=== PATIENT | female | born 1980 | race Caucasian/White ===

== ENCOUNTER 2016-12-19 02:59 | Inpatient (IN) | payer BC ==
[2016-12-19] MEDS ORDERED: Sodium Chloride 0.9% 10 ML Syringe FLUSH PRN (07:26)
[2016-12-19] MEDS ORDERED: Oxytocin/Lactated Ringers 10 UNIT/1,000 ML BAG IV SCH ×2 (07:45→22:00)
[2016-12-19] MEDS: Lactated Ringers 1,000 ML IV SCH ×4 (08:00→18:40)
--- NOTE | 2016-12-19 08:35 | PCM.LDHP ---
<Mercedes Ryan - Last Filed: 12/19/16 09:18> L&D History of Present Illness - General Date of Service: 12/19/16 Admit Problem/Dx: Patient Status Order with Admit Dx/Problem Intrauterine at 39 and 0/7th weeks gestation. - History of Present Illness Introduction:: History of Present Illness: The patient is a 36-year-old 3, para 2-0-0-2 white female with an ILEANA of 12/26/2016, who was admitted for elective induction of labor. She is presently at 2 cm dilation. Course: The patient's last menstrual period was on 03/23/2016, was approximate, using no control at the time of conception. Her LMP was supported by ultrasounds done on 06/14/2016, 07/17/2016, 08/11/2016, 11/23/2016, and 2016. Her course has been relatively unremarkable. Patient has hypothyroidism and an umbilical cord cyst was seen on ultrasound done on 2016. She did report decreased movement on 11/23/2016 and a BPP at this time was 6/8. She is open to epidural. She had an [place] Depression Screen score of 3 on 08/10/2016. She received her tdap vaccination on 06/26/2014. She plans on . Quad screen was negative. Group B strep screen was negative. Her course weight gain of approximately 186 up to 220 pounds. Her vital signs were stable throughout and fundal height growth was appropriate. Laboratory Testing: Showed blood type to be A positive with negative antibody screen. Her hemoglobin was 13.3 at first visit. Platelets were 268,000. She is rubella immune. RPR is nonreactive. Her urine culture was negative. Hepatitis B and HIV assays were negative. Chlamydia and gonorrhea were negative. Genetic screening on 06/01/2016 was within normal limits. Her second trimester testing showed a hemoglobin of 12.9 and platelets were 212,000. Her 1 -hour glulcose was 129 - normal. Group B strep screen was negative. Free T4 was 1.05 on 06/14/2016. 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 sister: alive; healthy sister: alive; healthy sister: alive; hypothyroid 3 brothers: alive; healthy Maternal Grandmother: ; thyroid cancer Maternal Grandfather: ; unknown Paternal Grandmother: ; [place] Paternal Grandfather: ; old age No clotting, bleeding or anesthesia problems noted in family. - Tobacco Use Smoking Status *Q: Never Smoker Second Hand Smoke Exposure: No - Alcohol Use Days Per Week of Alcohol Use: 0 - Recreational Drug Use Recreational Drug Use: No - Living Situation & Occupation Social History Comment: The patient is , is Thony Calvillo. The live in [place]. The patient works as a special eduction para aide. She does not use any significant amounts of alcohol, drugs, or tobaccos. H&P Review of Systems - Review of Systems: Review Of Systems: See Below Free Text/Narrative: Respiratory: Denies asthma, shortness of breath, recent upper respiratory illness. Cardiovascular: Denies chest pain, history of murmurs, and palpitations. No history of blood clots Breasts: Changes associated with only GI: Denies nausea, vomiting, diarrhea, constipation and blood in stool. : Changes associated with only. Denies blood in urine and burning with urination. Musculoskeletal: Minimal edema on occasion General: Reports: Diaphoresis L&D Exam - Exam Exam: See Below - Vital Signs Vital Signs: General: The patient is a well-developed, well-nourished pleasant female of stated age, in no acute distress Vital signs: HEr blood pressure is 118/78 on last evalulation in clinic on 12/12. Weight was 220 with pregravid weight of 186. BMI prior to was 29.1. heart rate was 142. Skin: Warm and dry without lesions Lungs: Clear to auscultation bilaterally Cardiovascular: Regular rate and rhythm without murmur Breasts: Deferred, havign been done at first visit and found to be normal. Abdomen: Protuberant with with a fundal height of 38 cm. Baby in vertex presentation and confirmed with ultrasound. Cervical exam on 12/12/2016 in clinic was 2 cm, 70% effaced, soft, 3- station, and mid position. Extremities: No significant edema Weight: 99.881 kg - Patient Data Result Diagrams: 12/19/16 07:50 Problem List Initiated/Reviewed/Updated: Yes Orders Last 24hrs: Active Orders 24 hr Category Date Time Status Patient Status [ADT] Routine ADT 12/19/16 07:28 Active Activity as Tolerated [RC] PFP Care 12/19/16 07:28 Active Communication Order [RC] ASDIRECTED Care 12/19/16 07:28 Active Heart Tones [RC] ASDIRECTED Care 12/19/16 07:28 Active Notify Provider [RC] PFP Care 12/19/16 07:28 Active Notify Provider [RC] PRN Care 12/19/16 07:28 Active Peripheral IV Care [RC] . DIRECTED Care 12/19/16 07:28 Active Vital Signs [RC] PER UNIT ROUTINE Care 12/19/16 07:28 Active Clear Liquid Diet [DIET] Diet 12/19/16 Breakfast Active CBC W/O DIFF,HEMOGRAM [HEME] Stat Lab 12/19/16 07:26 Ordered Lactated Ringers [Ringers, Lactated] 1,000 ml Med 12/19/16 07:30 Active IV ASDIRECTED Oxytocin/Lactated Ringers [Pitocin in LR 10 Units/1,000 Med 12/19/16 07:45 Active ML] 10 unit in 1,000 ml IV TITRATE Sodium Chloride 0.9% [Saline Flush] Med 12/19/16 07:26 Active 10 ml FLUSH ASDIRECTED PRN Electronic Heart Tones Ext w TOCO [WOMSER] Oth 12/19/16 07:28 Ordered Routine Electronic Heart Tones Internal [WOMSER] Per Unit Oth 12/19/16 07:28 Ordered Routine Peripheral IV Insertion Adult [OM.PC] Routine Oth 12/19/16 07:28 Ordered Resuscitation Status Routine Resus Stat 12/19/16 07:26 Ordered Medication Orders Lactated Ringer's (Ringers, Lactated) 1,000 mls @ 100 mls/hr IV ASDIRECTED ERIC Oxytocin/Lactated Ringer's (Pitocin In Lr 10 Units/1,000 Ml) 10 unit in 1,000 mls @ 12 mls/hr IV TITRATE ERIC; 2 MUNITS/MIN PRN Reason: Protocol Sodium Chloride (Saline Flush) 10 ml FLUSH ASDIRECTED PRN PRN Reason: Keep Vein Open Assessment/Plan Comment:: Assessment: 1. Term intrauterine at 39 and 0/7th weeks gestational age, elective induction of labor 2. Group B strep negative 3. desires epidural for pain control 4. Patient plans to nurse Plan: 1. Anticipate normal spontaneous vaginal delivery 2. Epidural prn per patient's desire 3. CBC for epidural 4. Support nursing decision <Jose Guillen F - Last Filed: 12/20/16 06:52> L&D History of Present Illness - General Admit Problem/Dx: Patient Status Order with Admit Dx/Problem 12/19/16 07:28 Patient Status [ADT] Routine Admission Diagnosis/Problem Admission Diagnosis/Problem - planned H&P Review of Systems - Review of Systems: Review Of Systems: See Below L&D Exam - Exam Exam: See Below - Vital Signs Vital Signs: Last Vital Signs Temp 36.3 C 12/19/16 07:28 Pulse 88 12/19/16 07:28 Resp 16 12/19/16 14:21 BP 136/60 12/19/16 07:28 Pulse Ox 99 12/19/16 14:21 - Patient Data Lab Results Last 24 hrs: Laboratory Results - last 24 hr 12/19/16 Range/Units 07:50 WBC 10.97 H (3.98-10.04) K/mm3 RBC 3.99 (3.98-5.22) M/mm3 Hgb 12.8 (11.2-15.7) gm/L Hct 37.4 (34.1-44.9) % MCV 93.7 (79.4-94.8) fl MCH 32.1 (25.6-32.2) pg MCHC 34.2 (32.2-35.5) g/dl RDW Std Deviation 45.1 (36.4-46.3) fL Plt Count 193 (182-369) K/mm3 MPV 9.9 (9.4-12.3) fl Result Diagrams: 12/19/16 07:50 Orders Last 24hrs: Active Orders 24 hr Category Date Time Status Patient Status [ADT] Routine ADT 12/19/16 07:28 Active Activity as Tolerated [RC] PFP Care 12/19/16 07:28 Active Communication Order [RC] ASDIRECTED Care 12/19/16 07:28 Active Heart Tones [RC] ASDIRECTED Care 12/19/16 07:28 Active Notify Provider [RC] ASDIRECTED Care 12/19/16 14:25 Active Notify Provider [RC] PFP Care 12/19/16 07:28 Active Notify Provider [RC] PRN Care 12/19/16 07:28 Active Peripheral IV Care [RC] . DIRECTED Care 12/19/16 07:28 Active Vaccines to be Administered [RC] PER UNIT ROUTINE Care 12/19/16 09:55 Active Vital Signs [RC] PER UNIT ROUTINE Care 12/19/16 07:28 Active Clear Liquid Diet [DIET] Diet 12/19/16 Breakfast Active Bupivacaine/fentaNYL/NS [fentaNYL/Bupivacaine/NS 2 MCG- Med 12/19/16 14:30 Active 0.125% 100 ML] 100 ml EPIDUR ASDIRECTED Lactated Ringers [Ringers, Lactated] 1,000 ml Med 12/19/16 07:30 Active IV ASDIRECTED Levothyroxine Med 12/21/16 06:00 Active 0 mcg PO Q48H Ondansetron [Zofran] Med 12/19/16 14:25 Active 4 mg IVPUSH ONETIME PRN Ondansetron [Zofran] Med 12/20/16 06:10 Active 4 mg IVPUSH Q4H PRN Oxytocin [Pitocin] 20 unit Med 12/19/16 23:30 Active Lactated Ringers [Ringers, Lactated] 1,000 ml IV TITRATE Oxytocin/Lactated Ringers [Pitocin in LR 10 Units/1,000 Med 12/19/16 07:45 Active ML] 10 unit in 1,000 ml IV TITRATE Patient's Own Medication [Ptom] Med 12/20/16 06:00 Active 0 each PO ACBREAKFAST Patient's Own Medication [Ptom] Med 12/19/16 20:00 Active 0 each PO DAILY@2000 Sodium Chloride 0.9% [Saline Flush] Med 12/19/16 07:26 Active 10 ml FLUSH ASDIRECTED PRN diphenhydrAMINE [Benadryl] Med 12/19/16 14:25 Active 25 mg IVPUSH Q6H PRN ePHEDrine [ePHEDrine Sulfate] Med 12/19/16 14:25 Active 5 mg IVPUSH ASDIRECTED PRN fentaNYL [Sublimaze] Med 12/19/16 14:25 Active 100 mcg IVPUSH Q5M PRN Electronic Heart Tones Ext w TOCO [WOMSER] Oth 12/19/16 07:28 Ordered Routine Electronic Heart Tones Internal [WOMSER] Per Unit Oth 12/19/16 07:28 Ordered Routine May Take Own Home Medications [OM.PC] Routine Oth 12/19/16 09:56 Ordered Peripheral IV Insertion Adult [OM.PC] Routine Oth 12/19/16 07:28 Ordered Resuscitation Status Routine Resus Stat 12/19/16 07:26 Ordered Medication Orders Diphenhydramine HCl (Benadryl) 25 mg IVPUSH Q6H PRN PRN Reason: Pruritis Ephedrine Sulfate (Ephedrine Sulfate) 5 mg IVPUSH ASDIRECTED PRN PRN Reason: Hypotension Fentanyl (Sublimaze) 100 mcg IVPUSH Q5M PRN PRN Reason: Pain Last Admin: 12/19/16 18:11 Dose: 100 mcg Fentanyl/Bupivacaine HCl (Fentanyl/Bupivacaine/Ns 2 Mcg-0.125% 100 Ml) 100 ml EPIDUR ASDIRECTED [facility] Last Admin: 12/20/16 01:50 Dose: 100 ml Admin: 12/19/16 18:11 Dose: 100 ml Lactated Ringer's (Ringers, Lactated) 1,000 mls @ 100 mls/hr IV ASDIRECTED [facility] Last Admin: 12/20/16 01:00 Dose: 100 mls/hr Infusion: 12/20/16 00:00 Dose: 999 mls/hr Infusion: 12/19/16 23:28 Dose: 999 mls/hr Admin: 12/19/16 18:40 Dose: 100 mls/hr Infusion: 12/19/16 18:40 Dose: 100 mls/hr Admin: 12/19/16 17:11 Dose: 100 mls/hr Infusion: 12/19/16 17:11 Dose: 100 mls/hr Admin: 12/19/16 12:28 Dose: 100 mls/hr Infusion: 12/19/16 12:28 Dose: 100 mls/hr Admin: 12/19/16 08:00 Dose: 100 mls/hr Oxytocin/Lactated Ringer's (Pitocin In Lr 10 Units/1,000 Ml) 10 unit in 1,000 mls @ 12 mls/hr IV TITRATE ERIC; 2 MUNITS/MIN PRN Reason: Protocol Last Titration: 12/19/16 19:57 Dose: 20 munits/min, 120 mls/hr Titration: 12/19/16 17:10 Dose: 18 munits/min, 108 mls/hr Titration: 12/19/16 16:55 Dose: 16 munits/min, 96 mls/hr Titration: 12/19/16 16:29 Dose: 14 munits/min, 84 mls/hr Titration: 12/19/16 16:07 Dose: 12 munits/min, 72 mls/hr Titration: 12/19/16 15:40 Dose: 10 munits/min, 60 mls/hr Titration: 12/19/16 14:20 Dose: 8 munits/min, 48 mls/hr Titration: 12/19/16 13:34 Dose: 7 munits/min, 42 mls/hr Titration: 12/19/16 10:27 Dose: 6 munits/min, 36 mls/hr Titration: 12/19/16 08:54 Dose: 4 munits/min, 24 mls/hr Admin: 12/19/16 08:32 Dose: 2 munits/min, 12 mls/hr Oxytocin 20 unit/ Lactated (Ringer's) 1,002 mls @ 6.01 mls/hr IV TITRATE ERIC; 2 MUNITS/MIN PRN Reason: Protocol Last Titration: 12/20/16 06:09 Dose: 26 munits/min, 78.15 mls/hr Titration: 12/20/16 05:46 Dose: 28 munits/min, 84.16 mls/hr Titration: 12/20/16 05:01 Dose: 26 munits/min, 78.15 mls/hr Titration: 12/20/16 04:32 Dose: 24 munits/min, 72.14 mls/hr Titration: 12/20/16 03:59 Dose: 22 munits/min, 66.13 mls/hr Titration: 12/20/16 03:10 Dose: 20 munits/min, 60.12 mls/hr Titration: 12/20/16 02:40 Dose: 18 munits/min, 54.1 mls/hr Titration: 12/20/16 01:50 Dose: 16 munits/min, 48.09 mls/hr Titration: 12/20/16 01:34 Dose: 15 munits/min, 45.09 mls/hr Titration: 12/20/16 01:02 Dose: 14 munits/min, 42.08 mls/hr Titration: 12/20/16 00:00 Dose: 13 munits/min, 39.07 mls/hr Titration: 12/19/16 23:17 Dose: 12 munits/min, 36.07 mls/hr Admin: 12/19/16 22:22 Dose: 11 munits/min, 33.06 mls/hr Levothyroxine Sodium (Levothyroxine) 0 mcg PO Q48H [facility] Ondansetron HCl (Zofran) 4 mg IVPUSH ONETIME PRN PRN Reason: Nausea/Vomiting Last Admin: 12/20/16 01:09 Dose: 4 mg Ondansetron HCl (Zofran) 4 mg IVPUSH Q4H PRN PRN Reason: Nausea Last Admin: 12/20/16 06:15 Dose: 4 mg Multivitamin Tablet/Gelcap 0 each PO DAILY@1999 [facility] Last Admin: 12/19/16 20:45 Dose: 1 each Levothyroxine 200 (Mcg Tab) 0 each PO ACBREAKFAST [facility] Last Admin: 12/20/16 06:30 Dose: 1 each Sodium Chloride (Saline Flush) 10 ml FLUSH ASDIRECTED PRN PRN Reason: Keep Vein Open
[2016-12-19] MEDS ORDERED: Diphtheria,Pertussis(Acell),Tetanus Vaccine 0.5 ML SDV IM ONE (11:00)
--- NOTE | 2016-12-19 14:16 | PCM.PREANE ---
Preanesthetic Assessment - Procedure Proposed Procedure: Labor Epidural - Anesthesia/Transfusion/Family Hx Anesthesia History: No Prior Anesthesia Family History of Anesthesia Reaction: No - Review of Systems General: No Symptoms Pulmonary: No Symptoms Cardiovascular: No Symptoms Gastrointestinal: Other (Heart Burn with ) Neurological: No Symptoms Other: Reports: None - Physical Assessment O2 Sat by Pulse Oximetry: 99 Respiratory Rate: 16 Vital Signs: Last Vital Signs Temp 36.3 C 12/19/16 07:28 Pulse 88 12/19/16 07:28 Resp 16 12/19/16 07:28 BP 136/60 12/19/16 07:28 Pulse Ox 99 12/19/16 07:28 Height: 1.73 m Weight: 99.881 kg ASA Class: 2 Mental Status: Alert & Oriented x3 Dentition: Reports: Normal Dentition ROM/Head Extension: Full Lungs: Clear to Auscultation, Normal Respiratory Effort Cardiovascular: Regular Rate, Regular Rhythm - Lab Values: Laboratory Last Values WBC 10.97 K/mm3 (3.98-10.04) H 12/19/16 07:50 RBC 3.99 M/mm3 (3.98-5.22) 12/19/16 07:50 Hgb 12.8 gm/L (11.2-15.7) 12/19/16 07:50 Hct 37.4 % (34.1-44.9) 12/19/16 07:50 MCV 93.7 fl (79.4-94.8) 12/19/16 07:50 MCH 32.1 pg (25.6-32.2) 12/19/16 07:50 MCHC 34.2 g/dl (32.2-35.5) 12/19/16 07:50 RDW Std Deviation 45.1 fL (36.4-46.3) 12/19/16 07:50 Plt Count 193 K/mm3 (182-369) 12/19/16 07:50 MPV 9.9 fl (9.4-12.3) 12/19/16 07:50 - Allergies Allergies/Adverse Reactions: Allergies Allergy/AdvReac Type Severity Reaction Status Date / Time adhesive tape Allergy Rash Verified 12/19/16 07:22 - Acknowledgements Anesthesia Type Planned: Epidural Pt an Appropriate Candidate for the Planned Anesthesia: Yes Alternatives and Risks of Anesthesia Discussed w Pt/Guardian: Yes Pt/Guardian Understands and Agrees with Anesthesia Plan: Yes PreAnesthesia Questionnaire - Past Health History Medical/Surgical History: Denies Medical/Surgical History Gastrointestinal History: Reports: Other (See Below) Other Gastrointestinal History: had laparoscopy for gallbladder and had no gallbladder upon dx laparoscopy per patient Endocrine/Metabolic History: Reports: Hypothyroidism - Past Surgical History GI Surgical History: Reports: Other (See Below) Other GI Surgeries/Procedures: laparoscopy 1998 - SUBSTANCE USE Smoking Status *Q: Never Smoker Second Hand Smoke Exposure: No Days Per Week of Alcohol Use: 0 Recreational Drug Use History: No - HOME MEDS Home Medications: Home Meds Levothyroxine 250 mcg PO DAILY 02/06/14 [History] Pnv with Ca,No.71/Iron/Fa [ Vitamin Tablet] 1 tab PO DAILY 02/06/14 [ History] - CURRENT (IN HOUSE) MEDS Current Meds: Current Medications Lactated Ringer's (Ringers, Lactated) 1,000 mls @ 100 mls/hr IV ASDIRECTED ERIC Last Admin: 12/19/16 12:28 Dose: 100 mls/hr Oxytocin/Lactated Ringer's (Pitocin In Lr 10 Units/1,000 Ml) 10 unit in 1,000 mls @ 12 mls/hr IV TITRATE ERIC; 2 MUNITS/MIN PRN Reason: Protocol Last Titration: 12/19/16 13:34 Dose: 7 munits/min, 42 mls/hr Levothyroxine Sodium (Levothyroxine) 0 mcg PO Q48H ERIC Multivitamin Tablet/Gelcap 0 each PO DAILY@2000 ERIC Levothyroxine 200 (Mcg Tab) 0 each PO ACBREAKFAST ERIC Sodium Chloride (Saline Flush) 10 ml FLUSH ASDIRECTED PRN PRN Reason: Keep Vein Open Discontinued Medications Diphtheria/Tetanus/Acell Pertussis (Adacel) 0.5 ml IM .ONCE ONE Stop: 12/19/16 11:01
[2016-12-19] MEDS ORDERED: ePHEDrine 50 MG/ML SDV IVPUSH PRN (14:25)
[2016-12-19] MEDS ORDERED: Ondansetron 4 MG/2 ML SDV IVPUSH PRN (14:25)
[2016-12-19] MEDS ORDERED: diphenhydrAMINE 50 MG/ML SDV IVPUSH PRN (14:25)
[2016-12-19] MEDS ORDERED: fentaNYL 100 MCG/2 ML SDV IVPUSH PRN (14:25)
[2016-12-19] MEDS ORDERED: Bupivacaine 0.25% 10 ML SDV ONE (14:30)
[2016-12-19] MEDS: Bupivacaine/fentaNYL/NS 100 ML Bag EPIDUR SCH (18:11)
[2016-12-19] MEDS ORDERED: [UNRECOGNIZED DRUG - OTHER] PO SCH (20:00)
[2016-12-19] MEDS ORDERED: PRENATAL MULTIVITAMIN PO SCH (20:00)
[2016-12-19] MEDS ORDERED: Oxytocin 10 Units/1 ML SDV ONE (22:05)
[2016-12-20] MEDS: Lactated Ringers 1,000 ML IV SCH (01:00)
[2016-12-20] MEDS: Bupivacaine/fentaNYL/NS 100 ML Bag EPIDUR SCH (01:50)
[2016-12-20] MEDS ORDERED: Levothyroxine 200 MCG TAB PO SCH (06:00)
[2016-12-20] MEDS ORDERED: Ondansetron 4 MG/2 ML SDV IVPUSH PRN (06:10)
--- NOTE | 2016-12-20 07:42 | PCM.SN ---
- Free Text/Narrative Note: Mireya is a 36-year-old multigravida white female who was admitted yesterday morning for elective induction of labor. She was started on Pitocin and progressed very slowly until the a.m. of 12/20/2016. Memory is ruptured and internal pressure transducer was placed. At approximately 4 cm she began progressed more rapidly. She had an epidural placed for pain control. She became completely dilated at approximately and delivered a viable, harry, 3400 g (7 pound, 8 ounce) male with Apgars 9 and 9 in a left occiput anterior position. He was placed on mom's abdomen. Cord was clamped 2 and then was cut by the father. She had a second-degree laceration which was repaired with 3-0 Monocryl in routine fashion. Epidural was used for analgesia/ anesthesia. Placenta delivered spontaneously in a [place] presentation. The umbilical cord was noted to have 3 vessels. Placenta appeared complete and intact. It was discarded per patient desire. Patient plans to nurse. Estimated blood loss was 100 mL. Condition: Good
[2016-12-20] MEDS ORDERED: Docusate Sodium 100 MG Cap PO PRN (07:58)
[2016-12-20] MEDS ORDERED: Witch Hazel Medicated Pads 100/Jar TOP PRN (07:58)
[2016-12-20] MEDS ORDERED: Lanolin 100% Cream 7 GM Tube TOP PRN (07:58)
[2016-12-20] MEDS ORDERED: Benzocaine/Menthol 20%-0.5% Spray 56 GM Canister TOP PRN (07:58)
[2016-12-20] MEDS ORDERED: Prenatal Multivitamin with Calcium/Folic Acid/Iron Tab PO SCH ×2 (09:00→21:00)
[2016-12-20] MEDS ORDERED: Levothyroxine 125 MCG Tab PO SCH (09:00)
[2016-12-20] MEDS: Ibuprofen 600 MG Tab PO PRN ×3 (12:57→22:09)
[2016-12-20] MEDS: Acetaminophen 325 MG Tab PO PRN (18:43)
[2016-12-21] MEDS ORDERED: Levothyroxine 25 MCG Tab PO SCH (06:00)
[2016-12-21] MEDS ORDERED: Levothyroxine 125 MCG Tab PO SCH (06:00)
[2016-12-21] MEDS: Ibuprofen 600 MG Tab PO PRN (06:28)
--- NOTE | 2016-12-21 08:38 | PCM.DCSUM1 ---
Discharge Summary - Hospital Course Free Text/Narrative:: [facility]IVE Provider Simple Note Patient Name: MARCEL CLIFTON Date of : 82 Patient Status: Inpatient Attending Provider: Jose Guillen Date: 12/20/16 07:39 Initialization Date: 12/20/16 07:39 - Free Text/Narrative Note: Marcel is a 36-year-old multigravida white female who was admitted yesterday morning for elective induction of labor. She was started on Pitocin and progressed very slowly until the a.m. of 12/20/2016. Memory is ruptured and internal pressure transducer was placed. At approximately 4 cm she began progressed more rapidly. She had an epidural placed for pain control. She became completely dilated at approximately and delivered a viable, harry, 3400 g (7 pound, 8 ounce) male with Apgars 9 and 9 in a left occiput anterior position. He was placed on mom's abdomen. Cord was clamped 2 and then was cut by the father. She had a second-degree laceration which was repaired with 3-0 Monocryl in routine fashion. Epidural was used for analgesia/ anesthesia. Placenta delivered spontaneously in a [place] presentation. The umbilical cord was noted to have 3 vessels. Placenta appeared complete and intact. It was discarded per patient desire. Patient plans to nurse. Estimated blood loss was 100 mL. Condition: Good HPI Initial Comments: [facility] LIVE Provider Simple Note Patient Name: MARCEL CLIFTON Date of : 82 Patient Status: Inpatient Attending Provider: Jose Guillen Date: 12/20/16 07:39 Initialization Date: 12/20/16 07:39 - Free Text/Narrative Note: Marcel is a 36-year-old multigravida white female who was admitted yesterday morning for elective induction of labor. She was started on Pitocin and progressed very slowly until the a.m. of 12/20/2016. Memory is ruptured and internal pressure transducer was placed. At approximately 4 cm she began progressed more rapidly. She had an epidural placed for pain control. She became completely dilated at approximately and delivered a viable, harry, 3400 g (7 pound, 8 ounce) male with Apgars 9 and 9 in a left occiput anterior position. He was placed on mom's abdomen. Cord was clamped 2 and then was cut by the father. She had a second-degree laceration which was repaired with 3-0 Monocryl in routine fashion. Epidural was used for analgesia/ anesthesia. Placenta delivered spontaneously in a [place] presentation. The umbilical cord was noted to have 3 vessels. Placenta appeared complete and intact. It was discarded per patient desire. Patient plans to nurse. Estimated blood loss was 100 mL. Condition: Good Brief History: [facility] LIVE . Provider Simple Note. Patient Name : MARCEL CLIFTON [facility] Record Number: [id number]. Date of : Patient Status: Inpatient. Attending Provider: Jose Guillen FAccount Number : [id number]. Date: 12/20/16 07:39Initialization Date: 12/20/16 07:39. - Free Text/Narrative. Note: Marcel is a 36-year-old multigravida white female who was admitted yesterday morning for elective induction of labor. She was started on Pitocin and progressed very slowly until the a.m. of 12/20/2016. Memory is ruptured and internal pressure transducer was placed. At approximately 4 cm she began progressed more rapidly. She had an epidural placed for pain control. She became completely dilated at approximately and delivered a viable, harry, 3400 g (7 pound, 8 ounce) male infant with Apgars 9 and 9 in a left occiput anterior position. He was placed on mom's abdomen. Cord was clamped 2 and then was cut by the father. She had a second- degree laceration which was repaired with 3-0 Monocryl in routine fashion. Epidural was used for analgesia/anesthesia. Placenta delivered spontaneously in a [place] presentation. The umbilical cord was noted to have 3 vessels. Placenta appeared complete and intact. It was discarded per patient desire. Patient plans to nurse. Estimated blood loss was 100 mL. Condition: Good - Discharge Data Discharge Date: 12/21/16 Discharge Disposition: Home, Self-Care 01 Condition: Good - Discharge Diagnosis/Problem(s) (1) 39 weeks gestation of SNOMED Code(s): 56834355 ICD Code: Z3A.39 - 39 WEEKS GESTATION OF Status: Acute Current Visit: Yes (2) Second degree laceration of perineum, delivered, current hospitalization SNOMED Code(s): 416352663 ICD Code: O70.1 - SECOND DEGREE PERINEAL LACERATION DURING DELIVERY Status : Acute Current Visit: Yes - Patient Summary/Data Complications: none Consults: none Hospital Course: uneventful - Patient Instructions Diet: Regular Diet as Tolerated Driving: Do Not Drive (x48 hrs) Showering/Bathing: May Shower Notify Provider of: Fever, Increased Pain, Swelling and Redness, Drainage, Nausea and/or Vomiting - Discharge Plan Home Medications: Home Meds Levothyroxine 250 mcg PO DAILY 02/06/14 [History] Pnv with Ca,No.71/Iron/Fa [ Vitamin Tablet] 1 tab PO DAILY 02/06/14 [ History] Acetaminophen [Tylenol] 650 mg PO Q6H PRN #0 tablet 12/21/16 [Rx] Benzocaine/Menthol [Dermoplast Pain Relief [place]] 1 spray TOP ASDIRECTED PRN #0 canister 12/21/16 [Rx] Docusate Sodium [Colace] 100 mg PO BID PRN #0 cap 12/21/16 [Rx] Ibuprofen [IJD: Ibuprofen] 200 - 600 mg PO Q6H PRN #0 tablet 12/21/16 [Rx] Witch Carmela [Tucks] 1 pad TOP ASDIRECTED PRN #0 pad 12/21/16 [Rx] Referrals: Jose Guillen MD [Physician] - (6 weeks) - Discharge Summary/Plan Comment DC Time >30 min.: No - Patient Data Vitals - Most Recent: Last Vital Signs Temp 98.1 F 12/21/16 03:44 Pulse 72 12/21/16 03:44 Resp 14 12/21/16 03:44 BP 116/64 12/21/16 03:44 Pulse Ox 94 L 12/21/16 03:44 Weight - Most Recent: 220 lb 3.2 oz Lab Results - Last 24 hrs: Laboratory Results - last 24 hr 12/21/16 Range/Units 05:54 WBC 12.75 H (3.98-10.04) K/mm3 RBC 3.59 L (3.98-5.22) M/mm3 Hgb 11.6 (11.2-15.7) gm/L Hct 34.1 (34.1-44.9) % MCV 95.0 H (79.4-94.8) fl MCH 32.3 H (25.6-32.2) pg MCHC 34.0 (32.2-35.5) g/dl RDW Std Deviation 45.3 (36.4-46.3) fL Plt Count 178 L (182-369) K/mm3 MPV 10.2 (9.4-12.3) fl Med Orders - Current: Current Medications Acetaminophen (Tylenol) 650 mg PO Q4H PRN PRN Reason: mild pain or fever Last Admin: 12/20/16 18:43 Dose: 650 mg Benzocaine/Menthol (Dermoplast Pain Relief [place]) 0 gm TOP ASDIRECTED PRN PRN Reason: Perineal Comfort Measure Last Admin: 12/20/16 12:50 Dose: 1 applic Docusate Sodium (Colace) 100 mg PO BID PRN PRN Reason: Constipation Last Admin: 12/20/16 12:57 Dose: 100 mg Emollient Ointment (Lansinoh Hpa) 0 gm TOP ASDIRECTED PRN PRN Reason: Sore Nipples Ibuprofen (Motrin) 600 mg PO Q4H PRN PRN Reason: Mild pain or fever Last Admin: 12/21/16 06:28 Dose: 600 mg Levothyroxine Sodium (Levothyroxine) 250 mcg PO ACBREAKFAST [facility] Prenat Multivit/[place]/Iron/Folic Ac ( Plus Iron) 1 each PO BEDTIME [facility] Last Admin: 12/20/16 21:56 Dose: Not Given Eber Casey (Tucks) 1 pad TOP ASDIRECTED PRN PRN Reason: Hemorrhoid pain Last Admin: 12/20/16 12:49 Dose: 1 applic Discontinued Medications Diphenhydramine HCl (Benadryl) 25 mg IVPUSH Q6H PRN PRN Reason: Pruritis Diphtheria/Tetanus/Acell Pertussis (Adacel) 0.5 ml IM .ONCE ONE Stop: 12/19/16 11:01 Last Admin: 12/20/16 21:57 Dose: 0.5 ml Ephedrine Sulfate (Ephedrine Sulfate) 5 mg IVPUSH ASDIRECTED PRN PRN Reason: Hypotension Fentanyl (Sublimaze) 100 mcg IVPUSH Q5M PRN PRN Reason: Pain Last Admin: 12/19/16 18:11 Dose: 100 mcg Fentanyl/Bupivacaine HCl (Fentanyl/Bupivacaine/Ns 2 Mcg-0.125% 100 Ml) 100 ml EPIDUR ASDIRECTED [facility] Last Admin: 12/20/16 01:50 Dose: 100 ml Lactated Ringer's (Ringers, Lactated) 1,000 mls @ 100 mls/hr IV ASDIRECTED [facility] Last Admin: 12/20/16 01:00 Dose: 100 mls/hr Oxytocin/Lactated Ringer's (Pitocin In Lr 10 Units/1,000 Ml) 10 unit in 1,000 mls @ 12 mls/hr IV TITRATE ERIC; 2 MUNITS/MIN PRN Reason: Protocol Last Titration: 12/19/16 19:57 Dose: 20 munits/min, 120 mls/hr Oxytocin/Lactated Ringer's (Pitocin In Lr 10 Units/1,000 Ml) 10 unit in 1,000 mls @ 12 mls/hr IV TITRATE ERIC; 2 MUNITS/MIN PRN Reason: Protocol Oxytocin 20 unit/ Lactated (Ringer's) 1,002 mls @ 6.01 mls/hr IV TITRATE ERIC; 2 MUNITS/MIN PRN Reason: Protocol Last Titration: 12/20/16 07:35 Dose: 250 mls/hr Levothyroxine Sodium (Levothyroxine) 0 mcg PO Q48H [facility] Levothyroxine Sodium (Levothyroxine) 250 mcg PO DAILY [facility] Last Admin: 12/20/16 20:51 Dose: Not Given Ondansetron HCl (Zofran) 4 mg IVPUSH ONETIME PRN PRN Reason: Nausea/Vomiting Last Admin: 12/20/16 01:09 Dose: 4 mg Ondansetron HCl (Zofran) 4 mg IVPUSH Q4H PRN PRN Reason: Nausea Last Admin: 12/20/16 06:15 Dose: 4 mg Oxytocin (Pitocin) Confirm Administered Dose 10 unit .ROUTE .STK-MED ONE Stop: 12/19/16 22:06 Last Admin: 12/19/16 22:21 Dose: Not Given Multivitamin Tablet/Gelcap 0 each PO DAILY@1999 [facility] Last Admin: 12/19/16 20:45 Dose: 1 each Levothyroxine 200 (Mcg Tab) 0 each PO ACBREAKFAST [facility] Last Admin: 12/20/16 06:30 Dose: 1 each Prenat Multivit/[place]/Iron/Folic Ac ( Plus Iron) 1 each PO DAILY [facility] Last Admin: 12/20/16 20:51 Dose: Not Given Sodium Chloride (Saline Flush) 10 ml FLUSH ASDIRECTED PRN PRN Reason: Keep Vein Open *Q Meaningful Use (DIS) - VTE *Q VTE Criteria *Q: - Stroke *Q Stroke Criteria *Q: - AMI *Q AMI Criteria *Q:
[2016-12-21] MEDS: Acetaminophen 325 MG Tab PO PRN (09:02)
[2016-12-21 09:21] VITALS: BP 113/66
[2016-12-21] MEDS ORDERED: Acetaminophen/oxyCODONE 325-5 MG Tab PO ONE (09:51)
--- NOTE | 2016-12-21 10:23 | PCM48HPAN ---
Post Anesthesia Note - EVALUATION WITHIN 48HRS OF ANESTHETIC Vital Signs in Normal Range: Yes Patient Participated in Evaluation: Yes Respiratory Function Stable: Yes Airway Patent: Yes Cardiovascular Function Stable: Yes Hydration Status Stable: Yes Pain Control Satisfactory: Yes Nausea and Vomiting Control Satisfactory: Yes Mental Status Recovered: Yes - COMMENTS/OBSERVATIONS Free Text/Narrative:: Patient denies any headaches, back pain, or residual numbness or tingling to LE.
== END 2016-12-21 11:00 | disposition home or self-care (01) | DRG 560 ==
LOC: JD.OB 06:53 → OBSVTOIN 12-20 07:13
PROVIDERS: ADMIT Obstetrics & Gynecology; ATTEND Obstetrics & Gynecology
PROC: 10E0XZZ Delivery of Products of Conception, External Approach (ICD-10-PCS; principal; 2016-12-19)
PROC: 3E033VJ Introduction of Other Hormone into Peripheral Vein, Percutaneous Approach (ICD-10-PCS; 2016-12-19)
PROC: 10907ZC Drainage of Amniotic Fluid, Therapeutic from Products of Conception, Via Natural or Artificial Opening (ICD-10-PCS; 2016-12-19)
PROC: 00HU33Z Insertion of Infusion Device into Spinal Canal, Percutaneous Approach (ICD-10-PCS; 2016-12-19)
PROC: 3E0R3CZ (ICD-10-PCS; 2016-12-19)
PROC: 0KQM0ZZ Repair Perineum Muscle, Open Approach (ICD-10-PCS; 2016-12-20)
PROC: 3E0234Z Introduction of Serum, Toxoid and Vaccine into Muscle, Percutaneous Approach (ICD-10-PCS; 2016-12-20)
DX: O99.284 Endocrine, nutritional and metabolic diseases complicating childbirth (principal); E03.9 Hypothyroidism, unspecified; O87.4 Varicose veins of lower extremity in the puerperium; Z3A.39 39 weeks gestation of pregnancy; Z37.0 Single live birth; Z91.09 Other allergy status, other than to drugs and biological substances; Z79.899 Other long term (current) drug therapy; Z23 Encounter for immunization; O70.1 Second degree perineal laceration during delivery; O69.81X0 Labor and delivery complicated by cord around neck, without compression, not applicable or unspecified
CPT/HCPCS: 01967; 36415; 85027; 90715; A9270-GY; J2405; J2590; J3010; J7120